=== PATIENT | female | born 1990 | race Caucasian/White ===

== ENCOUNTER 2017-10-11 20:20 | Emergency (ER) | payer OTHER ==
[~2017-10-11] VITALS: Ht 165.1 cm; Wt 100.0 kg
[2017-10-11 20:58] VITALS: BP 175/103; PULSE 93; RESP 16; TEMP 98.2; O2SAT 100
[2017-10-11] MEDS ORDERED: KETOROLAC TROMETHAMINE 60 MG/2 ML (IM) VIAL IM ONE (21:45)
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
[2017-10-11 22:36] VITALS: BP 134/86
== END 2017-10-11 22:41 | disposition home or self-care (01) ==
LOC: NEPD 20:20
DX: M25.511 Pain in right shoulder (principal); V43.52XA Car driver injured in collision with other type car in traffic accident, initial encounter
CPT/HCPCS: 72125; 73030; 96372; 99284; J1885; L0150